=== PATIENT | male | born 1965 | race African-American/Black ===

== ENCOUNTER 2019-05-01 08:11 | Emergency (ER) | payer MEDICARE ==
[~2019-05-01] VITALS: Ht 180.3 cm; Wt 95.4 kg
--- NOTE | 2019-05-01 08:24 | EKG ---
[facility] [address] [place] [address] Test Date: 2019-05-01 Test Time: 08:13:28 Pat Name: IRENE FLORES Department: Room: Gender: M [employer]: : 1965 Requested By: ENRRIQUE MALAVE Order Number: [id number] Reading MD: Measurements Intervals [place] Rate: 96 P: 90 IN: 198 QRS: -6 QRSD: 100 T: 104 QT: 376 QTc: 482 Interpretive Statements SINUS RHYTHM VENTRICULAR PREMATURE COMPLEX(ES) LEFT ATRIAL ABNORMALITY LEFTWARD AXIS T ABNORMALITY IN ANTERIOR LEADS LATERAL LEADS PROLONGED QT ABNORMAL ECG No previous ECG available for comparison
[2019-05-01] MEDS ORDERED: ALLO300T PO (08:29)
[2019-05-01] MEDS ORDERED: MORPHINE SULFATE 2 MG/ML VIAL. IV ONE (08:30)
[2019-05-01] MEDS ORDERED: ONDANSETRON PF 4 MG/2 ML VIAL. IV ONE (08:30)
[2019-05-01 08:37] LABS: BASO # 0.1 x10^3/uL (0.0-0.2); BASO % 2 % (0-3); EOS # 0.3 x10^3/uL (0.0-0.7); EOS % 5 % (0-3); HEMATOCRIT 41.3 % (39.0-53.0); HEMOGLOBIN 13.3 g/dL (13.0-17.5); LYMPH # 1.5 x10^3/uL (1.0-4.8); LYMPH % 26 % (24-48); MEAN CORPUSCULAR HEMOGLOBIN 26 pg (25-35); MEAN CORPUSCULAR HGB CONC 32 g/dL (31-37); MEAN CORPUSCULAR VOLUME 82 fL (79-100); MONO # 0.4 x10^3/uL (0.0-1.1); MONO % 8 % (0-9); NEUT # 3.4 x10^3/uL (1.8-7.7); NEUT % 60 % (31-73); PLATELET COUNT 351 x10^3/uL (140-400); RED BLOOD COUNT 5.06 x10^6/uL (4.30-5.70); RED CELL DISTRIBUTION WIDTH 16.6 % (11.5-14.5); WHITE BLOOD COUNT 5.7 x10^3/uL (4.0-11.0)
[2019-05-01] MEDS ORDERED: FAMO20TA5 PO (08:37)
[2019-05-01] MEDS ORDERED: TRAZ-118 PO (08:37)
[2019-05-01] MEDS ORDERED: POTA20TA82 PO (08:37)
[2019-05-01] MEDS ORDERED: TORS20TA2 PO (08:37)
[2019-05-01] MEDS ORDERED: ACET500T68 PO (08:37)
[2019-05-01] MEDS ORDERED: NITR0.4T22 SL (08:37)
[2019-05-01] MEDS ORDERED: ASPI-630 PO (08:37)
[2019-05-01] MEDS ORDERED: HYDR100T24 PO (08:37)
[2019-05-01] MEDS ORDERED: ISOS60TA2 PO (08:37)
[2019-05-01] MEDS ORDERED: INSU100V6 SQ (08:37)
[2019-05-01] MEDS ORDERED: TAMS0.4C97 PO (08:37)
[2019-05-01] MEDS ORDERED: MAGN400T5 PO (08:37)
[2019-05-01] MEDS ORDERED: POTA10TA12 PO (08:37)
[2019-05-01] MEDS ORDERED: ATORVASTATIN CA80 MG PO (08:37)
--- NOTE | 2019-05-01 08:39 | RAD ---
PORTABLE CHEST 1V History: Chest pain Comparison: May 25, 2012 Findings: Mild interstitial thickening and perihilar hazy opacities. Cardiomegaly. Left-sided ICD. Prior median sternotomy. No pneumothorax. No pleural effusion. Vascular calcifications. Impression: 1. Mild interstitial thickening and hazy opacities, may indicate pulmonary edema. 2. Cardiomegaly, increased compared to 2011. Electronically signed by: Bib Mathews DO (05/01/2019 8:35 AM) [facility]
[2019-05-01 08:43] LABS: CALCIUM 9.1 mg/dL (8.5-10.1); CREATININE 1.9 mg/dL (0.7-1.3); GFR 45.3; POTASSIUM 4.1 mmol/L (3.5-5.1)
[2019-05-01 08:49] LABS: PROTHROMBIN TIME PATIENT 15.6 SEC (11.7-14.0)
[2019-05-01 08:50] LABS: ALBUMIN 4.4 g/dL (3.4-5.0); ALBUMIN/GLOBULIN RATIO 1.1 (1.0-1.7); MAGNESIUM 2.3 mg/dL (1.8-2.4); TOTAL BILIRUBIN 0.7 mg/dL (0.2-1.0); TOTAL PROTEIN 8.5 g/dL (6.4-8.2)
--- NOTE | 2019-05-01 08:52 | PHYS DOC ---
Past Medical History Past Medical History: CAD, CHF, Diabetes-Type II, High Cholesterol, Hypertension Adult General Chief Complaint Chief Complaint: chest pain HPI HPI Patient is a 53 year old male with history of hypertension, dyslipidemia, diabetes mellitus, CHF with scheduled to have a LVAD at [facility] who presents via EMS with complaining of chest pain. Patient states he woke up at 0530 because of patient in chest pain with radiation to his back and rated his pain 8/10 associated with shortness of breath, nausea and one episode of vomiting, dizziness. Patient states he took 324 mg of aspirin and nitroglycerin 3 without change of his pain. Patient states he had the same episodes of chest pain with CHF exacerbation previously. Patient rated his pain 10/10. Review of Systems Review of Systems Constitutional: Denies fever or chills [] Eyes: Denies change in visual acuity, redness, or eye pain [] HENT: Denies nasal congestion or sore throat [] Respiratory: Denies cough, reports shortness of breath [] Cardiovascular: No additional information not addressed in HPI [] GI: Denies abdominal pain, bloody stools or diarrhea , reports nausea and vomiting[] : Denies dysuria or hematuria [] Musculoskeletal: Denies back pain or joint pain [] Integument: Denies rash or skin lesions [] Neurologic: Denies headache, focal weakness or sensory changes [] Endocrine: Denies polyuria or polydipsia [] All other systems were reviewed and found to be within normal limits, except as documented in this note. Current Medications Current Medications Current Medications Medications (Trade) Dose Ordered Sig/[place] Start Time Stop Time Status Last Admin Dose Admin Furosemide (Lasix) 40 mg 1X ONCE 05/01/19 09:00 05/01/19 09:01 DC 05/01/19 09:06 40 MG Morphine Sulfate (Morphine Sulfate) 4 mg 1X ONCE 05/01/19 11:15 05/01/19 11:16 DC 05/01/19 11:40 4 MG Ondansetron HCl (Zofran) 4 mg 1X ONCE 05/01/19 08:30 05/01/19 08:31 DC 05/01/19 08:41 4 MG Allergies Allergies Allergies Coded Allergies Type Severity Reaction Last Updated Verified avocado Allergy Severe ITCHING THROAT 05/01/19 Yes bee venom protein (honey bee) Allergy Severe ANAPHYLAXIS 05/01/19 Yes coconut oil Allergy Severe THROAT SWELLING 05/01/19 Yes hornet venom Allergy Severe ANAPHYLAXIS 05/01/19 Yes lisinopril Allergy Severe ANGIOEDEMA 05/01/19 Yes Physical Exam Physical Exam Constitutional: Well developed, well nourished, moderate distress, non-toxic appearance. [] HENT: Normocephalic, atraumatic. Eyes: PERRLA, EOMI, conjunctiva normal, no discharge. [] Neck: Normal range of motion, no tenderness, supple, no stridor, JVD bilaterally. [] Cardiovascular:Heart rate regular rhythm, no murmur [] Lungs & Thorax: Bilateral breath sounds clear to auscultation [] Abdomen: Bowel sounds normal, soft, no tenderness, no masses, no pulsatile masses. [] Skin: Warm, dry, no erythema, no rash. [] Back: No tenderness, no CVA tenderness. [] Extremities: No tenderness, no cyanosis, no clubbing, ROM intact, no edema. [] Neurologic: Alert and oriented X 3, no focal deficits noted. [] Psychologic: Affect anxious, judgement normal, mood normal. [] Current Patient Data Vital Signs Vital Signs Date Time Temp Pulse Resp B/P (MAP) Pulse Ox O2 Delivery O2 Flow Rate FiO2 05/01/19 11:40 22 05/01/19 09:41 90 129/82 (98) 96 Nasal Cannula 2.0 05/01/19 08:11 97.7 97.7 Lab Values Laboratory Tests Test 05/01/19 08:20 White Blood Count 5.7 x10^3/uL (4.0-11.0) Red Blood Count 5.06 x10^6/uL (4.30-5.70) Hemoglobin 13.3 g/dL (13.0-17.5) Hematocrit 41.3 % (39.0-53.0) Mean Corpuscular Volume 82 fL (79-100) Mean Corpuscular Hemoglobin 26 pg (25-35) Mean Corpuscular Hemoglobin Concent 32 g/dL (31-37) Red Cell Distribution Width 16.6 % (11.5-14.5) H Platelet Count 351 x10^3/uL (140-400) Neutrophils (%) (Auto) 60 % (31-73) Lymphocytes (%) (Auto) 26 % (24-48) Monocytes (%) (Auto) 8 % (0-9) Eosinophils (%) (Auto) 5 % (0-3) H Basophils (%) (Auto) 2 % (0-3) Neutrophils # (Auto) 3.4 x10^3/uL (1.8-7.7) Lymphocytes # (Auto) 1.5 x10^3/uL (1.0-4.8) Monocytes # (Auto) 0.4 x10^3/uL (0.0-1.1) Eosinophils # (Auto) 0.3 x10^3/uL (0.0-0.7) Basophils # (Auto) 0.1 x10^3/uL (0.0-0.2) Prothrombin Time 15.6 SEC (11.7-14.0) H Prothrombin Time INR 1.3 (0.8-1.1) H Sodium Level 141 mmol/L (136-145) Potassium Level 4.1 mmol/L (3.5-5.1) Chloride Level 103 mmol/L (98-107) Carbon Dioxide Level 25 mmol/L (21-32) Anion Gap 13 (6-14) Blood Urea Nitrogen 50 mg/dL (8-26) H Creatinine 1.9 mg/dL (0.7-1.3) H Estimated GFR (Cockcroft-Gault) 45.3 BUN/Creatinine Ratio 26 (6-20) H Glucose Level 138 mg/dL (70-99) H Calcium Level 9.1 mg/dL (8.5-10.1) Magnesium Level 2.3 mg/dL (1.8-2.4) Total Bilirubin 0.7 mg/dL (0.2-1.0) Aspartate Amino Transferase (AST) 26 U/L (15-37) Alanine Aminotransferase (ALT) 30 U/L (16-63) Alkaline Phosphatase 119 U/L (46-116) H Creatine Kinase 63 U/L (39-308) Troponin I Quantitative 0.031 ng/mL (0.000-0.055) TY-Qpb-J-Type Natriuretic Peptide 4883 pg/mL (0-124) H Total Protein 8.5 g/dL (6.4-8.2) H Albumin 4.4 g/dL (3.4-5.0) Albumin/Globulin Ratio 1.1 (1.0-1.7) Lipase 82 U/L (73-393) Laboratory Tests 05/01/19 08:20 Laboratory Tests 05/01/19 08:20 EKG EKG EKG interpreted by me. EKG at 0813 showed normal sinus rhythm at rate of 96, PVCs, left atrial abnormality, left brown axis, T-wave abnormalities anterior leads, Q wave in anteroseptal leads, no acute ST and T-wave elevation. Radiology/Procedures Radiology/Procedures [][facility] [address] [place] [address] IMAGING REPORT Signed PATIENT: IRENE FLORES ACCOUNT: [id number] : 1965 LOCATION: ER AGE: 53 SEX: M EXAM STATUS: REG ER ORD. PHYSICIAN: ENRRIQUE MALAVE MD REASON: chest pain PROCEDURE: PORTABLE CHEST 1V PORTABLE CHEST 1V History: Chest pain Comparison: May 25, 2012 Findings: Mild interstitial thickening and perihilar hazy opacities. Cardiomegaly. Left-sided ICD. Prior median sternotomy. No pneumothorax. No pleural effusion. Vascular calcifications. Impression: 1. Mild interstitial thickening and hazy opacities, may indicate pulmonary edema. 2. Cardiomegaly, increased compared to 2011. Electronically signed by: Bib Mahtews DO (05/01/2019 8:35 AM) [facility] DICTATED and SIGNED BY: BIB MATHEWS DO DATE: 05/01/19834 Course & Med Decision Making Course & Med Decision Making Pertinent Labs and Imaging studies reviewed. (See chart for details) Evaluation of patient in ER showed 53-year-old male patient with history of CHF and plan to have LVAD at [facility] brought in by EMS because of chest pain or shortness of breath without responding to home dressing. Patient treated with morphine and Lasix with improvement of his condition. , accepted admission to [facility] at 0 [phone]. Dragon Disclaimer Dragon Disclaimer This electronic medical record was generated, in whole or in part, using a voice recognition dictation system. Departure Departure Impression: Primary Impression: Pulmonary edema Additional Impressions: Acute chest pain Renal insufficiency Dyspnea Disposition: 05 TRANSFER OTHER ([facility] 0850) Condition: GUARDED Referrals: NON,STAFF (PCP) The HEART Score for CP Pts HEART Score for Chest Pain: HEART Score for Chest Pain Response (Comments) Value History Highly Suspicious 2 ECG Nonspecific Repolarizatio 1 Age >45 - < 65 1 Risk Factors >3 Risk Factors or Hx CAD 2 Troponin < Normal Limit 0 Total 6 Risk Factors: Risk Factors: DM, Current or recent (<one month) smoker, HTN, HLP, family history of CAD, obesity. Risk Scores: Score 0 - 3: 2.5% MACE over next 6 weeks - Discharge Home Score 4 - 6: 20.3% MACE over next 6 weeks - Admit for Clinical Observation Score 7 - 10: 72.7% MACE over next 6 weeks - Early Invasive Strategies Critical Care Time Critical care time was 60 minutes exclusive of procedures. Problem Qualifiers Primary Impression: Pulmonary edema Chronicity: acute Qualified Codes: J81.0 - Acute pulmonary edema Additional Impressions: Dyspnea Dyspnea type: unspecified Qualified Codes: R06.00 - Dyspnea, unspecified ENRRIQUE MALAVE MD May 01, 2019 08:52
[2019-05-01] MEDS ORDERED: FUROSEMIDE 40 MG/4 ML VIAL. IVP ONE (09:00)
[2019-05-01] MEDS ORDERED: MORPHINE SULFATE 4 MG/ML VIAL. IV ONE ×2 (11:15→16:00)
[2019-05-01 16:46] VITALS: BP 116/78
== END 2019-05-01 17:13 | disposition short-term general hospital (02) ==
LOC: ER 08:11
DX: I11.0 Hypertensive heart disease with heart failure (principal); I50.1 Left ventricular failure, unspecified; N28.9 Disorder of kidney and ureter, unspecified; R11.2 Nausea with vomiting, unspecified; E78.00 Pure hypercholesterolemia, unspecified; E11.9 Type 2 diabetes mellitus without complications; I25.10 Atherosclerotic heart disease of native coronary artery without angina pectoris; Z91.030 Bee allergy status; Z88.8 Allergy status to other drugs, medicaments and biological substances; Z91.018 Allergy to other foods; Z91.09 Other allergy status, other than to drugs and biological substances
CPT/HCPCS: 36415; 71045; 80053; 82550; 82962; 83690; 83735; 83880; 84484; 85025; 85610; 93005; 96374; 96375; 96376; 99285; J1940; J2270; J2405

== ENCOUNTER → 2019-07-26 | Outpatient (CLI) | payer MEDICARE ==
[~2019-07-26] MED LIST: ACET500T68 PO; ALLO300T PO; ASPI-630 PO; ATORVASTATIN CA80 MG PO; FAMO20TA5 PO; HYDR100T24 PO; INSU100V6 SQ; ISOS60TA2 PO; MAGN400T5 PO; NITR0.4T22 SL; POTA20TA4 PO; POTASSIUM CHLO10 ME1 PO; TAMS0.4C97 PO; TORS20TA2 PO; TRAZ-118 PO
[2019-07-26 12:18] LABS: PROTHROMBIN TIME PATIENT 22.3 SEC (11.7-14.0)
[2019-07-26 12:27] LABS: CALCIUM 9.2 mg/dL (8.5-10.1); CREATININE 2.7 mg/dL (0.7-1.3); GFR 30.2; POTASSIUM 4.9 mmol/L (3.5-5.1)
== END | disposition home or self-care (01) ==
LOC: LAB 11:38
PROVIDERS: ATTEND Nurse Practitioner Acute Care
DX: Z95.811 Presence of heart assist device (principal)
CPT/HCPCS: 36415; 80048; 85610